=== PATIENT | female | born 1995 | race Hispanic/Latino ===

== ENCOUNTER 2021-08-07 22:51 | Emergency (ER) | payer OTHER, SELFPAY ==
--- NOTE | ~2021-08-07 | XR_ITS ---
EXAMINATION: XR foot LT min 3V DATE: 08/07/2021 23:24 INDICATION: Left foot pain TECHNIQUE: Dorsoplantar, lateral, and 2 oblique views of the left foot were obtained. COMPARISON: None. FINDINGS: There is dorsal soft tissue swelling of the foot. A subtle linear heterotopic ossification projects over the proximal metatarsals on the lateral view. Bone alignment is normal. IMPRESSION: 1. Possible chip fracture of the foot involving the proximal aspect of a metatarsal seen only on the lateral view. Reviewed, dictated and finalized at location A. IMPRESSION: 1. Possible chip fracture of the foot involving the proximal aspect of a metata rsal seen only on the lateral view.
[2021-08-07 22:58] VITALS: BP 108/82; PULSE 98; RESP 20; TEMP 36.7; O2SAT 99
--- NOTE | 2021-08-07 23:11 | ED.LOWEXIN ---
HPI - Extremity Injury (Lower) General Chief Complaint: Extremity Injury, Lower Stated Complaint: foot injury Time Seen by Provider: 08/07/21 23:08 Source: patient Mode of arrival: ambulatory Limitations: no limitations History of Present Illness HPI Narrative: Patient is a 25-year-old female complaining of pain on top of the left foot after a door fell on the foot. Patient states her pain is a 7 out of 10, dull, aching, worse with movement. Patient denies any other pain or injuries Related Data Allergies Allergy/AdvReac Type Severity Reaction Status Date / Time No Known Allergies Allergy Verified 08/07/21 23:03 Review of Systems Review of Systems: All systems reviewed & are unremarkable except as noted in HPI and below PMFSH Comments Past medical history: None Family history: None Social history: Non-smoker no EtOH or drug use Exam Const: General: no acute distress and alert Orientation/consciousness: patient oriented x3 HENMT: Head: normal to inspection Eyes: Conjunctivae: conjunctivae normal Neck: Neck: normal visual inspection Resp: Effort & Inspection: normal respiratory effort Extrem: Other: Left foot contusion, swelling, pain on palpation, pain on range of motion. Neurovascular is intact Course Vital Signs Vital signs: Vital Signs Temperature 36.7 C 08/07/21 22:58 Pulse Rate 98 08/07/21 22:58 Respiratory Rate 20 08/07/21 22:58 Blood Pressure 108/82 08/07/21 22:58 Pulse Oximetry 99 08/07/21 22:58 Temperature 36.7 C 08/07/21 22:58 Pulse Rate 98 08/07/21 22:58 Respiratory Rate 20 08/07/21 22:58 Blood Pressure 108/82 08/07/21 22:58 Pulse Oximetry 99 08/07/21 22:58 Discharge Plan Discharge Clinical Impression: Foot fracture, left Patient Disposition: Home, Self-Care Condition: Stable Instructions: Antibiotic Form Follow-up/Referrals: PHYSICIAN,[facility] [employer] [facility] OPERATOR [Primary Care Provider] -
[2021-08-07] MEDS: IBUPROFEN 600 MG TABLET PO (23:45)
[2021-08-07] MEDS: HYDROcodone/acetaminophen (*CRX) 5-325 MG TABLET 1 TAB PO (23:46)
== END 2021-08-08 00:03 | disposition home or self-care (01) ==
PROVIDERS: Emergency Provider Emergency Medicine
DX: S92.302A Fracture of unspecified metatarsal bone(s), left foot, initial encounter for closed fracture (principal); W20.8XXA Other cause of strike by thrown, projected or falling object, initial encounter
CPT/HCPCS: 73630; 99284; A9270